=== PATIENT | male | born 1945 | race Caucasian/White ===

== ENCOUNTER 2018-03-06 15:20 | Inpatient (IN) | payer MEDICARE, OTHER ==
[~2018-03-06] VITALS: Ht 177.8 cm; Wt 79.5 kg
[~2018-03-06 15:20] MED LIST: NORCO10T PO; PANT40TA39 PO
[2018-03-06 15:47] LABS: BASOPHILS % (AUTO) 0.1 % (0-1); EOSINOPHILS % (AUTO) 0.2 % (0-6); HEMATOCRIT 40.8 % (42.0-52.0); HEMOGLOBIN 13.9 g/dl (14.0-17.9); LYMPHOCYTES # (AUTO) 1.4 X10'3 (1.1-4.8); LYMPHOCYTES % (AUTO) 8.4 % (21-51); MEAN CORPUSCULAR HEMOGLOBIN 30.9 PG (27.0-31.0); MEAN CORPUSCULAR HGB CONC 34.1 % (33.0-36.5); MEAN CORPUSCULAR VOLUME 90.7 FL (78-98); MEAN PLATELET VOLUME 7.9 FL (7.4-10.4); MONOCYTES # (AUTO) 0.3 X10'3 (0-0.9); NEUTROPHILS # (AUTO) 14.7 X10'3 (1.8-7.7); NEUTROPHILS % (AUTO) 89.3 % (42-75); PLATELET COUNT 238 X10'3 (140-440); RED CELL DISTRIBUTION WIDTH 13.8 % (11.5-14.5); WHITE BLOOD COUNT 16.4 X10'3 (4.5-11.0)
[2018-03-06 15:50] LABS: PARTIAL THROMBOPLASTIN TIME 30 SECONDS (22-32); PROTHROMBIN TIME 10.7 SECONDS (9.0-12.0)
[2018-03-06 15:56] LABS: ALANINE AMINOTRANSFERASE 36 U/L (12-78); ALBUMIN 3.8 G/DL (3.4-5.0); ALBUMIN/GLOBULIN RATIO 1.2 (1.1-1.5); ALKALINE PHOSPHATASE 86 IU/L (46-116); ANION GAP 8 (8-16); ASPARTATE AMINO TRANSFERASE 28 U/L (10-37); BLOOD UREA NITROGEN 22 MG/DL (7-18); BUN/CREATININE RATIO 16.5 (5.4-32.0); CALCIUM 8.7 MG/DL (8.5-10.1); CHLORIDE 99 MMOL/L (99-107); CREATININE 1.33 MG/DL (0.60-1.10); GLUCOSE 100 MG/DL (70-104); SODIUM 132 MMOL/L (135-145); TOTAL CARBON DIOXIDE 24.7 MMOL/L (24-32); TOTAL PROTEIN 7.1 G/DL (6.4-8.2); eGFR 53 ML/MIN
[2018-03-06 16:01] LABS: D-DIMER 0.72 MG/L FEU (0-0.50)
[2018-03-06] MEDS ORDERED: normal saline 1000ML IV soln IV ONE (16:15)
[2018-03-06] MEDS ORDERED: azithromycin/NS 500mg/250ml 250 ML IV ONE (16:15)
[2018-03-06] MEDS ORDERED: CefTRIAXone 2gm/D5W 50ml 50 ML IV ONE (16:15)
[2018-03-06] MEDS ORDERED: iohexol 350MG/ML 100ml bottle IV ONE (16:32)
[2018-03-06] MEDS ORDERED: UMEC1DIS INH (18:41)
[2018-03-06] MEDS ORDERED: ATOR40TA PO (18:41)
[2018-03-06] MEDS ORDERED: acetaminophen 325mg tablet PO PRN (19:15)
[2018-03-06] MEDS ORDERED: mag hydrox/Alum hydrox/simeth 30ml oral suspension PO PRN (19:15)
[2018-03-06] MEDS ORDERED: docusate sod 100mg capsule PO PRN (19:15)
[2018-03-06] MEDS ORDERED: magnesium 4gm in 100ml NS 100 ML IV PRN (19:15)
[2018-03-06] MEDS ORDERED: potassium Cl 20 mEq SR tablet PO PRN ×2 (19:15)
[2018-03-06] MEDS ORDERED: potassium Cl 40MEQ/NS 500ml 500 ML IV PRN ×2 (19:15)
[2018-03-06] MEDS ORDERED: ipratropium/albuterol 3ml nebule NEB PRN (19:15)
[2018-03-06] MEDS ORDERED: ondansetron/PF 4mg/2ml inj IV PRN (19:15)
[2018-03-06] MEDS ORDERED: magnesium 1gm/100ml D5W IVPB 100 ML IV PRN (19:15)
[2018-03-06 22:02] VITALS: BP 122/60
[2018-03-07] VITALS: BP 136/64
[2018-03-07 05:21] LABS: BASOPHILS % (AUTO) 0.2 % (0-1); EOSINOPHILS # (AUTO) 0.4 X10'3 (0-0.9); EOSINOPHILS % (AUTO) 2.6 % (0-6); HEMATOCRIT 35.5 % (42.0-52.0); HEMOGLOBIN 12.1 g/dl (14.0-17.9); LYMPHOCYTES # (AUTO) 1.9 X10'3 (1.1-4.8); LYMPHOCYTES % (AUTO) 13.5 % (21-51); MEAN CORPUSCULAR HEMOGLOBIN 30.9 PG (27.0-31.0); MEAN CORPUSCULAR HGB CONC 34.1 % (33.0-36.5); MEAN CORPUSCULAR VOLUME 90.6 FL (78-98); MEAN PLATELET VOLUME 8.6 FL (7.4-10.4); MONOCYTES % (AUTO) 6.6 % (2-12); NEUTROPHILS # (AUTO) 11.1 X10'3 (1.8-7.7); NEUTROPHILS % (AUTO) 77.1 % (42-75); PLATELET COUNT 208 X10'3 (140-440); RED BLOOD COUNT 3.92 X10'6 (4.70-6.10); WHITE BLOOD COUNT 14.4 X10'3 (4.5-11.0)
[2018-03-07 05:37] LABS: ALANINE AMINOTRANSFERASE 30 U/L (12-78); ALBUMIN 2.8 G/DL (3.4-5.0); ALBUMIN/GLOBULIN RATIO 0.9 (1.1-1.5); ALKALINE PHOSPHATASE 67 IU/L (46-116); ANION GAP 8 (8-16); ASPARTATE AMINO TRANSFERASE 20 U/L (10-37); BILIRUBIN,TOTAL 0.9 MG/DL (0.1-1.0); BLOOD UREA NITROGEN 20 MG/DL (7-18); BUN/CREATININE RATIO 15.7 (5.4-32.0); CALCIUM 8.4 MG/DL (8.5-10.1); CHLORIDE 102 MMOL/L (99-107); CHOL/HDL RATIO 1.7 (0.00-4.99); CHOLESTEROL 101 MG/DL (0-200); CREATININE 1.27 MG/DL (0.60-1.10); GLUCOSE 98 MG/DL (70-104); HDL CHOLESTEROL 59 MG/DL (35-60); LDL CHOLESTEROL 38 MG/DL (50-100); MAGNESIUM 1.8 MG/DL (1.5-2.4); POTASSIUM 4.1 MMOL/L (3.5-5.1); SODIUM 136 MMOL/L (135-145); TOTAL CARBON DIOXIDE 25.9 MMOL/L (24-32); TRIGLYCERIDES 47 MG/DL (20-135); eGFR 56 ML/MIN
[2018-03-07 07:12] VITALS: BP 137/66
[2018-03-07] MEDS ORDERED: atorvastatin 20mg tablet PO SCH (08:00)
[2018-03-07] MEDS ORDERED: enoxaparin 40mg/0.4ml syringe SQ SCH (08:00)
[2018-03-07] MEDS ORDERED: K and/or MAG REPLACEMENT MC SCH (08:00)
[2018-03-07] MEDS ORDERED: UMECLIDINIUM BRM IH SCH (08:00)
[2018-03-07] MEDS ORDERED: cefTRIAXone 1g/NS 100ml IVPB 100 ML IV SCH (08:00)
[2018-03-07] MEDS ORDERED: azithromycin/NS 500mg/250ml 250 ML IV SCH (08:00)
[2018-03-07] MEDS ORDERED: VILANTEROL TR IH SCH (08:00)
[2018-03-07] MEDS ORDERED: pneumococcal 23-VAL P-sac vacc 25 mcg/0.5ml vial IMVAC ONE (10:00)
[2018-03-07 11:00] VITALS: BP 129/64
[2018-03-07] MEDS ORDERED: LEVO750T21 PO (11:49)
[2018-03-07] MEDS ORDERED: ALBU8.5H8 INH (11:54)
[2018-03-07] MEDS ORDERED: PANT40TA4 PO (15:32)
[2018-03-07] MEDS ORDERED: FLUT1DIS4 INH (15:32)
[2018-03-07] MEDS ORDERED: lactobacillus rhamnosus 10,000 MMU CELLS/CAPSULE PO SCH (20:00)
== END 2018-03-07 16:34 | disposition home or self-care (01) | DRG 871 ==
LOC: ER 15:21 → ED HOLD 19:11 → SUR 3N 21:20
PROVIDERS: ADMIT Family Medicine; ATTEND Family Medicine
PROC: B32T1ZZ Computerized Tomography (CT Scan) of Left Pulmonary Artery using Low Osmolar Contrast (ICD-10-PCS; principal; 2018-03-06)
PROC: B3201ZZ Computerized Tomography (CT Scan) of Thoracic Aorta using Low Osmolar Contrast (ICD-10-PCS; 2018-03-06)
PROC: B32S1ZZ Computerized Tomography (CT Scan) of Right Pulmonary Artery using Low Osmolar Contrast (ICD-10-PCS; 2018-03-06)
DX: A41.9 Sepsis, unspecified organism (principal); J18.9 Pneumonia, unspecified organism; J44.0 Chronic obstructive pulmonary disease with (acute) lower respiratory infection; E78.00 Pure hypercholesterolemia, unspecified; F17.210 Nicotine dependence, cigarettes, uncomplicated; E78.5 Hyperlipidemia, unspecified; F14.10 Cocaine abuse, uncomplicated; F15.10 Other stimulant abuse, uncomplicated; Z87.11 Personal history of peptic ulcer disease; Z23 Encounter for immunization; Z79.899 Other long term (current) drug therapy; Z71.51 Drug abuse counseling and surveillance of drug abuser
CPT/HCPCS: 36415; 71045; 71275; 80053; 80061; 83605; 83735; 84145; 84484; 85025; 85379; 85610; 85730; 87040; 87070; 90732; 93005; 94760; 96365; 96366; 96368; 99285; J0456; J0696; J1650; J7030; Q9967

== ENCOUNTER 2018-10-28 16:19 | Emergency (ER) | payer MEDICARE, OTHER ==
[~2018-10-28] VITALS: Ht 177.8 cm; Wt 76.0 kg
[~2018-10-28 16:19] MED LIST changes: +ALBU8.5H8 INH; +ATOR40TA PO; +FLUT1DIS4 INH; -NORCO10T PO; -PANT40TA39 PO; +PANT40TA4 PO; +UMEC1DIS INH
[2018-10-28 17:31] LABS: BASOPHILS # (AUTO) 0.1 X10'3 (0-0.2); BASOPHILS % (AUTO) 1.2 % (0-1); EOSINOPHILS # (AUTO) 0.3 X10'3 (0-0.9); EOSINOPHILS % (AUTO) 3.4 % (0-6); HEMATOCRIT 39.8 % (42.0-52.0); HEMOGLOBIN 13.5 g/dl (14.0-17.9); LYMPHOCYTES # (AUTO) 2.2 X10'3 (1.1-4.8); LYMPHOCYTES % (AUTO) 29.2 % (21-51); MEAN CORPUSCULAR HEMOGLOBIN 30.4 PG (27.0-31.0); MEAN CORPUSCULAR VOLUME 89.6 FL (78-98); MEAN PLATELET VOLUME 8.6 FL (7.4-10.4); MONOCYTES # (AUTO) 0.9 X10'3 (0-0.9); MONOCYTES % (AUTO) 11.9 % (2-12); NEUTROPHILS # (AUTO) 4.1 X10'3 (1.8-7.7); NEUTROPHILS % (AUTO) 54.3 % (42-75); PLATELET COUNT 255 X10'3 (140-440); RED BLOOD COUNT 4.43 X10'6 (4.70-6.10); RED CELL DISTRIBUTION WIDTH 13.4 % (11.5-14.5); WHITE BLOOD COUNT 7.5 X10'3 (4.5-11.0)
[2018-10-28 17:35] LABS: INR 1.1 INR
[2018-10-28 17:41] LABS: ALANINE AMINOTRANSFERASE 26 U/L (12-78); ALBUMIN 3.6 G/DL (3.4-5.0); ALKALINE PHOSPHATASE 86 IU/L (46-116); ANION GAP 7 (8-16); ASPARTATE AMINO TRANSFERASE 23 U/L (10-37); BILIRUBIN,TOTAL 0.2 MG/DL (0.1-1.0); BLOOD UREA NITROGEN 24 MG/DL (7-18); BUN/CREATININE RATIO 20.7 (5.4-32.0); CALCIUM 9.4 MG/DL (8.5-10.1); CHLORIDE 105 MMOL/L (99-107); CREATININE 1.16 MG/DL (0.60-1.10); GLUCOSE 98 MG/DL (70-104); SODIUM 138 MMOL/L (135-145); TOTAL PROTEIN 7.1 G/DL (6.4-8.2); eGFR 62 ML/MIN
[2018-10-28 17:51] LABS: CLARITY,URINE CLEAR (Clear); COLOR,URINE YELLOW (Yellow); GLUCOSE, URINE NEGATIVE (Neg); KETONES,URINE NEGATIVE (Neg); LEUKOCYTE ESTERASE ,URINE NEGATIVE (Neg); NITRITES, URINE NEGATIVE (Neg); OCCULT BLOOD,URINE TRACE-INTACT (Neg); PH,URINE 5.5 (4.8-8.0); PROTEIN,URINE TRACE mg/dl (Neg); UROBILINOGEN,URINE 0.2 E.U/dL (0.2-1.0)
[2018-10-28 17:52] LABS: UA COLLECTION TYPE CLN CATCH MIDSTREAM
[2018-10-28 17:57] LABS: BACTERIA,URINE NONE SEEN /HPF (Neg); MUCUS STRANDS FEW /LPF (Neg); RBC,URINE 0-2 /HPF (0-2); SPERM MANY /HPF (NEGATIVE); SQUAMOUS EPITHELIAL CELL,UR FEW /LPF (FEW); WBC,URINE NONE SEEN /HPF (0-4)
[2018-10-28] MEDS ORDERED: acetaminophen 325mg tablet PO ONE (20:10)
[2018-10-28] MEDS ORDERED: BISA-155 PO (21:37)
[2018-10-28] MEDS ORDERED: POLY17PO10 PO (21:37)
[2018-10-28 21:44] VITALS: BP 180/90
== END 2018-10-28 21:46 | disposition home or self-care (01) ==
LOC: ER 16:20
DX: K59.00 Constipation, unspecified (principal); R10.12 Left upper quadrant pain; E78.00 Pure hypercholesterolemia, unspecified; J44.9 Chronic obstructive pulmonary disease, unspecified
CPT/HCPCS: 36415; 74176; 80053; 81001; 85025; 85610; 99284

== ENCOUNTER 2019-02-27 14:10 | Day surgery (SDC) | payer MEDICARE, OTHER ==
[2019-02-27] VITALS (9 sets, daily range): BP systolic 113–144; BP diastolic 53–82
[~2019-02-27] VITALS: Ht 177.8 cm; Wt 75.7 kg
[~2019-02-27 14:10] MED LIST changes: +BISA-155 PO
[2019-02-27] MEDS ORDERED: diphenhydrAMINE 25mg capsule PO PRN (14:30)
[2019-02-27] MEDS ORDERED: LORazepam 0.5 MG tablet PO PRN (14:30)
[2019-02-27] MEDS ORDERED: ASPI81TA52 PO (14:45)
[2019-02-27] MEDS ORDERED: BUDE10.22 INH (14:45)
[2019-02-27] MEDS ORDERED: LEVO750T21 PO (14:45)
[2019-02-27] MEDS ORDERED: CHOL50004 PO (14:45)
[2019-02-27] MEDS ORDERED: LISI-600 PO (14:45)
[2019-02-27] MEDS ORDERED: CLOP75TA15 PO (14:45)
[2019-02-27] MEDS ORDERED: AMLO10TA PO (14:45)
[2019-02-27] MEDS: normal saline 1,000 ML IV SCH ×2 (15:03→18:20)
[2019-02-27] MEDS ORDERED: iohexol 350MG/ML 100ml bottle IV ONE ×2 (15:38→17:48)
[2019-02-27] MEDS ORDERED: DOPamine 400mg/D5W 250ml 250 ML IV ONE (15:38)
[2019-02-27] MEDS ORDERED: iohexol 350 MG/ML 50ML vial IV ONE ×2 (15:38→17:16)
[2019-02-27] MEDS ORDERED: phenylephrine 10mg/ml inj. ONE (15:38)
[2019-02-27] MEDS ORDERED: LIDOcaine 1% (10mg/ml)w/preservative injection 20ml MDV ONE (15:38)
[2019-02-27] MEDS ORDERED: atropine 0.1mg/ml 10ml syringe ONE (15:38)
[2019-02-27] MEDS ORDERED: heparin 1,000unit/ml 10ml vial 10 ML ONE (17:37)
--- NOTE | 2019-02-27 18:05 | NUR ---
Received report from RAMAN Pineda from the laboratory worker. Patient is said to be alert and oriented. He has received no sedation. He was to have had a carotid stent placed but did not receive any intervention as the doctor was not able to cross over the legion. Patient will need to follow up with Dr. Ojeda and be referred for a surgical consult. Per RAMAN Pineda patient received 8000 units of heparin as well. Will await patient's arrival to the unit.
--- NOTE | 2019-02-27 18:10 | NUR ---
Patient arrive to the ACCE unit by way of gurtoby. Patient is alert and oriented x4. Vitals taken and Right groin checked as this is entrance for heart cath. Assessment completed and assumed care of patient. Will continue to monitor patient for duration of shift. Addendum: 02/27/19 at 1946 by Kathe Flores RN Patient has orders to be discharged at 2100 hrs this shift 02/27/2019 per RAMAN Pineda from the laboratory animal caretaker.
[2019-02-27] MEDS ORDERED: ondansetron/PF 4mg/2ml inj IV PRN (18:45)
[2019-02-27] MEDS ORDERED: HYDROcodone/acetaminophen 5mg/325mg tablet PO PRN (18:45)
[2019-02-27] MEDS ORDERED: OXAZEpam 15mg capsule PO PRN (18:45)
[2019-02-27] MEDS ORDERED: proCHLORperazine 10 MG/2 ml inj IV PRN (18:45)
[2019-02-27] MEDS ORDERED: HYDROcodone/acetaminophen 10/325mg tab PO PRN (18:45)
--- NOTE | 2019-02-27 21:35 | NUR ---
Went over discharge papers with patient and his girlfriend. Patient reports that he understands and signed the discharge paperwork. Patient was alert and oriented x4 and in stable condition. Right groin assessed just prior to discharge and was in stable condition. No hematoma, soft to the touch and only a small amount of drainage. The patient had no complaints of pain. The patient and his girlfriend then mentioned that they needed to wait for their ride. Allowed patient to remain in the room until ride came.
--- NOTE | 2019-02-27 22:30 | NUR ---
Patient's ride arrived at the hospital and I took patient down to his ride awaiting in our parking lot. I pushed patient down in a wheelchair. He maintained a stable condition while waiting for his ride. He took all of his belongings with him and left nothing in the room.
== END 2019-02-27 21:35 | disposition home or self-care (01) ==
LOC: SSTAY O 14:10 → MED 3N 18:58 → SSTAY O 21:35
PROVIDERS: ATTEND Internal Medicine Interventional Cardiology
DX: I65.23 Occlusion and stenosis of bilateral carotid arteries (principal); I10 Essential (primary) hypertension; J44.9 Chronic obstructive pulmonary disease, unspecified; Z79.01 Long term (current) use of anticoagulants; Z79.899 Other long term (current) drug therapy; Z79.82 Long term (current) use of aspirin
CPT/HCPCS: 36222; 93005; C1769; J0461; J1265; J1644; J2001; J2370; J7030; Q0163; Q9967; A4620; A6258; C1725; C1760; C1876; C1884; G0378

== ENCOUNTER 2019-03-01 21:03 | Inpatient (IN) | payer MEDICARE, OTHER ==
[~2019-03-01] VITALS: Ht 172.7 cm; Wt 80.7 kg
[2019-03-01] MEDS: normal saline 1000ml 1,000 ML IV SCH (08:48)
[~2019-03-01 21:03] MED LIST changes: -ALBU8.5H8 INH; +AMLO10TA PO; +ASPI81TA52 PO; -BISA-155 PO; +BUDE10.22 INH; +CHOL50004 PO; +CLOP75TA15 PO; -FLUT1DIS4 INH; +LEVO750T21 PO; +LISI-600 PO; -PANT40TA4 PO; -UMEC1DIS INH
[2019-03-01] MEDS ORDERED: normal saline 1000ml 1,000 ML IV ONE (21:35)
[2019-03-01] MEDS ORDERED: LEVO50TA8 PO (21:41)
[2019-03-01 21:43] LABS: BASOPHILS # (AUTO) 0.1 X10'3 (0-0.2); BASOPHILS % (AUTO) 1.2 % (0-1); EOSINOPHILS # (AUTO) 0.3 X10'3 (0-0.9); EOSINOPHILS % (AUTO) 3.5 % (0-6); HEMATOCRIT 35.2 % (42.0-52.0); LYMPHOCYTES # (AUTO) 2.6 X10'3 (1.1-4.8); MEAN CORPUSCULAR HEMOGLOBIN 30.9 PG (27.0-31.0); MEAN CORPUSCULAR VOLUME 90.9 FL (78-98); MEAN PLATELET VOLUME 8.3 FL (7.4-10.4); MONOCYTES # (AUTO) 1.2 X10'3 (0-0.9); MONOCYTES % (AUTO) 14.3 % (2-12); NEUTROPHILS # (AUTO) 4.4 X10'3 (1.8-7.7); PLATELET COUNT 184 X10'3 (140-440); RED BLOOD COUNT 3.87 X10'6 (4.70-6.10); RED CELL DISTRIBUTION WIDTH 13.9 % (11.5-14.5); WHITE BLOOD COUNT 8.5 X10'3 (4.5-11.0)
[2019-03-01 21:57] LABS: PARTIAL THROMBOPLASTIN TIME 33 SECONDS (22-32)
[2019-03-01 21:59] LABS: ALANINE AMINOTRANSFERASE 28 U/L (12-78); ALBUMIN 3.8 G/DL (3.4-5.0); ALBUMIN/GLOBULIN RATIO 1.1 (1.1-1.5); ALKALINE PHOSPHATASE 85 IU/L (46-116); ANION GAP 11 (8-16); ASPARTATE AMINO TRANSFERASE 16 U/L (10-37); BILIRUBIN,TOTAL 0.4 MG/DL (0.1-1.0); BLOOD UREA NITROGEN 41 MG/DL (7-18); BUN/CREATININE RATIO 17.4 (5.4-32.0); CALCIUM 8.5 MG/DL (8.5-10.1); CHLORIDE 103 MMOL/L (99-107); CREATININE 2.35 MG/DL (0.60-1.10); GLUCOSE 96 MG/DL (70-104); POTASSIUM 4.4 MMOL/L (3.5-5.1); SODIUM 137 MMOL/L (135-145); TOTAL PROTEIN 7.2 G/DL (6.4-8.2); eGFR 27 ML/MIN
[2019-03-01] MEDS ORDERED: mag hydrox/Alum hydrox/simeth 30ml oral suspension PO PRN (22:50)
[2019-03-01] MEDS ORDERED: morphine 2 MG/ML inj. syringe IV PRN ×2 (22:50)
[2019-03-01] MEDS ORDERED: ondansetron/PF 4mg/2ml inj IV PRN (22:50)
[2019-03-01] MEDS ORDERED: acetaminophen 325mg tablet PO PRN (22:50)
[2019-03-01] MEDS ORDERED: magnesium hydroxide 30ml (MOM) UD suspension PO PRN (22:50)
--- NOTE | 2019-03-01 22:51 | NUR ---
Mekhi bernabe in [facility] - 03/01/19 at 2253 by KRIS Pt given Octreotide, TXA, and pantoprazol at [facility]
[2019-03-02] VITALS (9 sets, daily range): BP systolic 102–131; BP diastolic 35–73
[2019-03-02] MEDS: albuterol 2.5 MG/3 ML nebule NEB SCH ×4 (03:03→20:42)
[2019-03-02 04:40] LABS: BASOPHILS # (AUTO) 0.1 X10'3 (0-0.2); EOSINOPHILS # (AUTO) 0.3 X10'3 (0-0.9); EOSINOPHILS % (AUTO) 3.7 % (0-6); HEMATOCRIT 34.3 % (42.0-52.0); HEMOGLOBIN 11.7 g/dl (14.0-17.9); LYMPHOCYTES # (AUTO) 2.1 X10'3 (1.1-4.8); LYMPHOCYTES % (AUTO) 30.1 % (21-51); MEAN CORPUSCULAR HEMOGLOBIN 30.9 PG (27.0-31.0); MEAN CORPUSCULAR HGB CONC 34.1 g/dL (33.0-36.5); MEAN CORPUSCULAR VOLUME 90.6 FL (78-98); MEAN PLATELET VOLUME 8.6 FL (7.4-10.4); MONOCYTES % (AUTO) 14.6 % (2-12); NEUTROPHILS # (AUTO) 3.6 X10'3 (1.8-7.7); NEUTROPHILS % (AUTO) 50.6 % (42-75); PLATELET COUNT 158 X10'3 (140-440); RED BLOOD COUNT 3.79 X10'6 (4.70-6.10); RED CELL DISTRIBUTION WIDTH 13.9 % (11.5-14.5); WHITE BLOOD COUNT 7.1 X10'3 (4.5-11.0)
[2019-03-02 04:53] LABS: ALBUMIN 3.3 G/DL (3.4-5.0); ANION GAP 9 (8-16); BLOOD UREA NITROGEN 37 MG/DL (7-18); BUN/CREATININE RATIO 20.6 (5.4-32.0); CALCIUM 8.5 MG/DL (8.5-10.1); CHLORIDE 109 MMOL/L (99-107); GLUCOSE 100 MG/DL (70-104); POTASSIUM 4.5 MMOL/L (3.5-5.1); SODIUM 140 MMOL/L (135-145); TOTAL CARBON DIOXIDE 22.2 MMOL/L (24-32); eGFR 37 ML/MIN
--- NOTE | 2019-03-02 06:05 | NUR ---
Patient in room ORTHO 4015. I have received report from Helder CAMARGO, and had the opportunity to ask questions and assume patient care.
[2019-03-02] MEDS: budesonide 0.5mg/2ml UD nebule IH SCH ×2 (07:31→20:42)
[2019-03-02] MEDS: levoTHYROXINE 25mcg tablet PO SCH (08:00)
[2019-03-02] MEDS: aspirin 81mg tablet.DR PO SCH (08:00)
[2019-03-02] MEDS: amLODIPine 5mg tablet PO SCH (08:04)
[2019-03-02] MEDS: clopidogrel 75mg tablet PO SCH (08:05)
[2019-03-02] MEDS: lisinopril 20mg tablet PO SCH (08:05)
[2019-03-02] MEDS: normal saline 1000ml 1,000 ML IV SCH ×3 (08:48→18:49)
--- NOTE | 2019-03-02 11:27 | NUR ---
PAGER ID: [phone] MESSAGE: Delores Ruiz, for 4015B, Mr. Jay, orthostatic vitals are documented, thank you Kady
--- NOTE | 2019-03-02 17:05 | NUR ---
Patient in room ORTHO 4015. I have received report from Toby CAMARGO in ED and had the opportunity to ask questions and assume patient care.
--- NOTE | 2019-03-02 18:30 | NUR ---
Patient in room ORTHO 4015. I have received report from Kady CAMARGO and had the opportunity to ask questions and assume patient care.
--- NOTE | 2019-03-02 18:40 | NUR ---
Problems reprioritized. Patient report given, questions answered & plan of care reviewed with Candy CAMARGO from [facility].
--- NOTE | 2019-03-02 18:40 | NUR ---
ag equipment field service technician called me to alert me to a positive MRI of the brain for multiple acute and subacute strokes. I relayed this information to Dr. Ruiz and he ordered patient to start Lipitor and have a tele neuro exam set up to give him recommendations on how to treat the patient for the stroke. I notified the Stroke team nurse, Ximena CAMARGO and she will check the patient tomorrow. I will call the [facility] to set up a consult.
[2019-03-02] MEDS: atorvastatin 20mg tablet PO SCH (20:21)
--- NOTE | 2019-03-02 20:42 | NUR ---
Per patient he has chronic numbness/ no feeling to his left leg from the knee down to foot Addendum: 03/02/19 at 2047 by Merlene Duong RN Amended: Links added.
[2019-03-02 21:31] LABS: URINE AMPHETAMINE SCREEN NEGATIVE (Neg); URINE BARBITUATE SCREEN NEGATIVE (Neg); URINE BENZODIAZEPINES SCREEN NEGATIVE (Neg); URINE CANNABINOID SCREEN NEGATIVE (Neg); URINE COCAINE SCREEN NEGATIVE (Neg); URINE METHADONE SCREEN NEGATIVE (Neg); URINE OPIATE SCREEN NEGATIVE (Neg); URINE PHENCYCLIDINE SCREEN NEGATIVE (Neg)
--- NOTE | 2019-03-02 23:10 | NUR ---
I called [facility] and faxed all the required paperwork for the neuro evaluation to be done. They will call when they have a MD to do the neuro evaluation.
[2019-03-03] VITALS (8 sets, daily range): BP systolic 102–137; BP diastolic 45–93
--- NOTE | 2019-03-03 00:29 | NUR ---
[facility] called back and they are scheduling patient for neuro consult by MD between 08-11 am Tuesday, Cart is outside door of room 4015. Will inform day shift of information.
[2019-03-03] MEDS: albuterol 2.5 MG/3 ML nebule NEB SCH ×4 (02:53→19:47)
--- NOTE | 2019-03-03 05:25 | NUR ---
Neuro Telemetry eval done with neurologist.
--- NOTE | 2019-03-03 06:05 | NUR ---
The neurologist from [facility] tele [facility] recommends: changing the Lipitor to 80mg a day, getting vascular consult, possible Holter monitor on d/c if no afib or irregular heart rhythm at our hospital is found. Also the Holter monitor recommendation if esr is negative and no vasculitis is found. Also recommends labs: Maureen, tsh,hiv,esr or crp, rpr,a1c, homocystine, b12, ua with c/s if indicated. She also recommended to continue the asa and Plavix and no other anticoagulant at this time unless we find the source of emboli. Also manager clinical services to help him with resources for stopping the drug abuse. Have Dr. Ruiz read the printed report from the neurologist that will be faxed to the floor so he can see the recommendations.
--- NOTE | 2019-03-03 06:20 | NUR ---
Patient in room ORTHO 4015. I have received report from Candy CAMARGO and had the opportunity to ask questions and assume patient care.
--- NOTE | 2019-03-03 06:22 | NUR ---
Problems reprioritized. Patient report given, questions answered & plan of care reviewed with Rupali CAMARGO.
[2019-03-03 07:26] LABS: BASOPHILS # (AUTO) 0.1 X10'3 (0-0.2); EOSINOPHILS # (AUTO) 0.2 X10'3 (0-0.9); EOSINOPHILS % (AUTO) 2.7 % (0-6); HEMATOCRIT 33.6 % (42.0-52.0); HEMOGLOBIN 11.4 g/dl (14.0-17.9); LYMPHOCYTES # (AUTO) 1.6 X10'3 (1.1-4.8); LYMPHOCYTES % (AUTO) 21.8 % (21-51); MEAN CORPUSCULAR HEMOGLOBIN 31.4 PG (27.0-31.0); MEAN CORPUSCULAR VOLUME 92.3 FL (78-98); MEAN PLATELET VOLUME 8.9 FL (7.4-10.4); MONOCYTES # (AUTO) 0.9 X10'3 (0-0.9); MONOCYTES % (AUTO) 12.8 % (2-12); NEUTROPHILS # (AUTO) 4.5 X10'3 (1.8-7.7); NEUTROPHILS % (AUTO) 61.7 % (42-75); PLATELET COUNT 172 X10'3 (140-440); RED BLOOD COUNT 3.64 X10'6 (4.70-6.10); WHITE BLOOD COUNT 7.3 X10'3 (4.5-11.0)
[2019-03-03 07:48] LABS: ALBUMIN 3.2 G/DL (3.4-5.0); ANION GAP 10 (8-16); BLOOD UREA NITROGEN 27 MG/DL (7-18); BUN/CREATININE RATIO 19.1 (5.4-32.0); CALCIUM 8.7 MG/DL (8.5-10.1); CHLORIDE 109 MMOL/L (99-107); CHOL/HDL RATIO 3.8 (0.00-4.99); CHOLESTEROL 151 MG/DL (0-200); CREATININE 1.41 MG/DL (0.60-1.10); GLUCOSE 99 MG/DL (70-104); HDL CHOLESTEROL 40 MG/DL (35-60); LDL CHOLESTEROL 95 MG/DL (50-100); POTASSIUM 4.6 MMOL/L (3.5-5.1); SODIUM 141 MMOL/L (135-145); TOTAL CARBON DIOXIDE 21.7 MMOL/L (24-32); TRIGLYCERIDES 105 MG/DL (20-135); eGFR 50 ML/MIN
[2019-03-03] MEDS: budesonide 0.5mg/2ml UD nebule IH SCH ×2 (08:26→19:47)
[2019-03-03] MEDS: atorvastatin 20mg tablet PO SCH (09:12)
[2019-03-03] MEDS: clopidogrel 75mg tablet PO SCH (09:12)
[2019-03-03] MEDS: lisinopril 20mg tablet PO SCH (09:12)
[2019-03-03] MEDS: levoTHYROXINE 25mcg tablet PO SCH (09:12)
[2019-03-03] MEDS: aspirin 81mg tablet.DR PO SCH (09:12)
[2019-03-03] MEDS: amLODIPine 5mg tablet PO SCH (09:12)
[2019-03-03] MEDS: normal saline 1000ml 1,000 ML IV SCH ×2 (09:13→20:16)
--- NOTE | 2019-03-03 18:00 | NUR ---
Problems reprioritized. Patient report given, questions answered & plan of care reviewed with Yan pratt.
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
[2019-03-04] VITALS (7 sets, daily range): BP systolic 104–131; BP diastolic 26–67
[2019-03-04] MEDS: albuterol 2.5 MG/3 ML nebule NEB SCH ×4 (02:04→20:32)
[2019-03-04 05:53] LABS: BASOPHILS # (AUTO) 0.1 X10'3 (0-0.2); BASOPHILS % (AUTO) 0.9 % (0-1); EOSINOPHILS # (AUTO) 0.3 X10'3 (0-0.9); EOSINOPHILS % (AUTO) 4.6 % (0-6); HEMATOCRIT 33.2 % (42.0-52.0); HEMOGLOBIN 11.4 g/dl (14.0-17.9); LYMPHOCYTES # (AUTO) 1.6 X10'3 (1.1-4.8); LYMPHOCYTES % (AUTO) 24.2 % (21-51); MEAN CORPUSCULAR HEMOGLOBIN 31.5 PG (27.0-31.0); MEAN CORPUSCULAR HGB CONC 34.4 g/dL (33.0-36.5); MEAN CORPUSCULAR VOLUME 91.7 FL (78-98); MEAN PLATELET VOLUME 8.6 FL (7.4-10.4); MONOCYTES # (AUTO) 0.8 X10'3 (0-0.9); MONOCYTES % (AUTO) 12.1 % (2-12); NEUTROPHILS # (AUTO) 3.9 X10'3 (1.8-7.7); NEUTROPHILS % (AUTO) 58.2 % (42-75); PLATELET COUNT 186 X10'3 (140-440); RED BLOOD COUNT 3.62 X10'6 (4.70-6.10); RED CELL DISTRIBUTION WIDTH 14.1 % (11.5-14.5); WHITE BLOOD COUNT 6.6 X10'3 (4.5-11.0)
[2019-03-04 06:15] LABS: ALBUMIN 3.2 G/DL (3.4-5.0); ANION GAP 9 (8-16); BLOOD UREA NITROGEN 18 MG/DL (7-18); BUN/CREATININE RATIO 15.5 (5.4-32.0); CALCIUM 8.6 MG/DL (8.5-10.1); CHLORIDE 110 MMOL/L (99-107); CREATININE 1.16 MG/DL (0.60-1.10); GLUCOSE 93 MG/DL (70-104); POTASSIUM 4.5 MMOL/L (3.5-5.1); SODIUM 143 MMOL/L (135-145); TOTAL CARBON DIOXIDE 24.4 MMOL/L (24-32); eGFR 62 ML/MIN
--- NOTE | 2019-03-04 06:38 | NUR ---
Received report from Helder CAMARGO
[2019-03-04] MEDS: aspirin 81mg tablet.DR PO SCH (08:01)
[2019-03-04] MEDS: levoTHYROXINE 25mcg tablet PO SCH (08:01)
[2019-03-04] MEDS: atorvastatin 20mg tablet PO SCH (08:01)
[2019-03-04] MEDS: clopidogrel 75mg tablet PO SCH (08:01)
[2019-03-04] MEDS: lisinopril 20mg tablet PO SCH (08:01)
[2019-03-04] MEDS: amLODIPine 5mg tablet PO SCH (08:02)
[2019-03-04] MEDS: budesonide 0.5mg/2ml UD nebule IH SCH ×2 (10:10→20:32)
[2019-03-04] MEDS: normal saline 1000ml 1,000 ML IV SCH (10:48)
--- NOTE | 2019-03-04 12:33 | NUR ---
Patient was discharged iv and tele was removed from patient. Patient was alert and oriented at time of discharge. Patient calvin prescrption was given to him with his signed papers in the folder. patient left with sister Addendum: 03/04/19 at 1240 by Chela Langston RN Written on wrong patient
[2019-03-04] MEDS ORDERED: nitroGLYCERIN 0.4mg SUBLingual tab SL PRN (14:40)
[2019-03-04] MEDS ORDERED: aminophylline 250mg/10ml inj. IV PRN (14:40)
[2019-03-04] MEDS ORDERED: metoprolol tartrate 1mg/ml inj IV PRN (14:40)
[2019-03-04] MEDS ORDERED: regadenoson 0.4mg/5ml syringe IV PRN (14:40)
--- NOTE | 2019-03-04 18:00 | NUR ---
Received report from Chela CAMARGO, assumed care of patient with Shannon CAMARGO
[2019-03-05] VITALS (12 sets, daily range): BP systolic 104–149; BP diastolic 54–73
[2019-03-05] MEDS: albuterol 2.5 MG/3 ML nebule NEB SCH ×4 (02:48→20:19)
[2019-03-05] MEDS: normal saline 1000ml 1,000 ML IV SCH ×3 (02:59→19:12)
--- NOTE | 2019-03-05 06:25 | NUR ---
Gave report to Chela CAMARGO with Shannon CAMARGO.
[2019-03-05 06:44] LABS: BASOPHILS # (AUTO) 0.1 X10'3 (0-0.2); BASOPHILS % (AUTO) 1.3 % (0-1); EOSINOPHILS # (AUTO) 0.3 X10'3 (0-0.9); HEMOGLOBIN 11.5 g/dl (14.0-17.9); LYMPHOCYTES # (AUTO) 1.6 X10'3 (1.1-4.8); LYMPHOCYTES % (AUTO) 24.8 % (21-51); MEAN CORPUSCULAR HGB CONC 33.7 g/dL (33.0-36.5); MEAN PLATELET VOLUME 8.6 FL (7.4-10.4); MONOCYTES # (AUTO) 0.8 X10'3 (0-0.9); MONOCYTES % (AUTO) 11.7 % (2-12); NEUTROPHILS # (AUTO) 3.7 X10'3 (1.8-7.7); NEUTROPHILS % (AUTO) 57.2 % (42-75); PLATELET COUNT 206 X10'3 (140-440); RED CELL DISTRIBUTION WIDTH 14.3 % (11.5-14.5); WHITE BLOOD COUNT 6.5 X10'3 (4.5-11.0)
[2019-03-05 06:54] LABS: ALBUMIN 3.2 G/DL (3.4-5.0); ANION GAP 12 (8-16); BLOOD UREA NITROGEN 16 MG/DL (7-18); BUN/CREATININE RATIO 14.3 (5.4-32.0); CALCIUM 8.6 MG/DL (8.5-10.1); CHLORIDE 109 MMOL/L (99-107); CREATININE 1.12 MG/DL (0.60-1.10); GLUCOSE 94 MG/DL (70-104); POTASSIUM 4.5 MMOL/L (3.5-5.1); SODIUM 146 MMOL/L (135-145); TOTAL CARBON DIOXIDE 24.6 MMOL/L (24-32); eGFR 65 ML/MIN
[2019-03-05] MEDS: budesonide 0.5mg/2ml UD nebule IH SCH ×2 (06:54→20:19)
[2019-03-05] MEDS: levoTHYROXINE 25mcg tablet PO SCH (07:00)
[2019-03-05] MEDS: lisinopril 20mg tablet PO SCH (07:15)
[2019-03-05] MEDS: amLODIPine 5mg tablet PO SCH (07:16)
[2019-03-05] MEDS: atorvastatin 20mg tablet PO SCH (07:17)
[2019-03-05] MEDS: clopidogrel 75mg tablet PO SCH ×2 (07:17→11:17)
[2019-03-05] MEDS: aspirin 81mg tablet.DR PO SCH (07:17)
--- NOTE | 2019-03-05 18:25 | NUR ---
Patient in room ORTHO 4015. I have received report from RAMAN York and had the opportunity to ask questions and assume patient care. The patient is resting comfortably at this time, just finished dinner. He is A&O x3 and CALERO, I will continue to monitor.
[2019-03-06] MEDS: normal saline 1000ml 1,000 ML IV SCH ×3 (02:48→20:29)
[2019-03-06] MEDS: albuterol 2.5 MG/3 ML nebule NEB SCH ×4 (02:48→20:04)
[2019-03-06 06:08] LABS: BASOPHILS # (AUTO) 0.1 X10'3 (0-0.2); BASOPHILS % (AUTO) 1.4 % (0-1); EOSINOPHILS # (AUTO) 0.3 X10'3 (0-0.9); HEMATOCRIT 33.4 % (42.0-52.0); HEMOGLOBIN 11.6 g/dl (14.0-17.9); LYMPHOCYTES # (AUTO) 1.7 X10'3 (1.1-4.8); LYMPHOCYTES % (AUTO) 26.8 % (21-51); MEAN CORPUSCULAR HEMOGLOBIN 31.5 PG (27.0-31.0); MEAN CORPUSCULAR HGB CONC 34.7 g/dL (33.0-36.5); MEAN CORPUSCULAR VOLUME 90.9 FL (78-98); MEAN PLATELET VOLUME 8.1 FL (7.4-10.4); MONOCYTES # (AUTO) 0.8 X10'3 (0-0.9); NEUTROPHILS # (AUTO) 3.5 X10'3 (1.8-7.7); NEUTROPHILS % (AUTO) 54.8 % (42-75); PLATELET COUNT 218 X10'3 (140-440); RED BLOOD COUNT 3.67 X10'6 (4.70-6.10); RED CELL DISTRIBUTION WIDTH 13.9 % (11.5-14.5); WHITE BLOOD COUNT 6.5 X10'3 (4.5-11.0)
[2019-03-06 06:16] LABS: ALBUMIN 3.1 G/DL (3.4-5.0); ANION GAP 8 (8-16); BLOOD UREA NITROGEN 16 MG/DL (7-18); BUN/CREATININE RATIO 13.3 (5.4-32.0); CALCIUM 8.5 MG/DL (8.5-10.1); CHLORIDE 110 MMOL/L (99-107); GLUCOSE 92 MG/DL (70-104); POTASSIUM 4.6 MMOL/L (3.5-5.1); SODIUM 143 MMOL/L (135-145); TOTAL CARBON DIOXIDE 25.4 MMOL/L (24-32); eGFR 60 ML/MIN
--- NOTE | 2019-03-06 06:30 | NUR ---
Problems reprioritized. Patient report given, questions answered & plan of care reviewed with RAMAN York.
--- NOTE | 2019-03-06 06:31 | NUR ---
Received report from Enriqueta CAMARGO
[2019-03-06] MEDS: levoTHYROXINE 25mcg tablet PO SCH (07:17)
[2019-03-06] MEDS: aspirin 81mg tablet.DR PO SCH (07:18)
[2019-03-06] MEDS: amLODIPine 5mg tablet PO SCH (07:18)
[2019-03-06] MEDS: atorvastatin 20mg tablet PO SCH (07:18)
[2019-03-06] MEDS: clopidogrel 75mg tablet PO SCH (07:18)
[2019-03-06] MEDS: lisinopril 20mg tablet PO SCH (07:18)
[2019-03-06 08:00] VITALS: BP_SYST 104; BP_SYST 113; BP_SYST 125; BP_DIAS 42; BP_DIAS 53; BP_DIAS 54
[2019-03-06 08:07] VITALS: BP 119/53
[2019-03-06] MEDS: budesonide 0.5mg/2ml UD nebule IH SCH ×2 (08:09→20:04)
[2019-03-06 10:00] VITALS: BP 150/66
[2019-03-06 18:00] VITALS: BP 121/71
--- NOTE | 2019-03-06 18:15 | NUR ---
Patient in room ORTHO 4015. I have received report from RAMAN York and had the opportunity to ask questions and assume patient care. Patient is A&O x3, CALERO and is resting comfortably on hospital bed, just finished dinner. I will continue to monitor, surgery is scheduled with Dr. Junior tomorrow @7am.
[2019-03-06 22:00] VITALS: BP 134/55
[2019-03-06 23:36] VITALS: BP 143/67
[2019-03-07] VITALS (26 sets, daily range): BP systolic 105–158; BP diastolic 49–85
[2019-03-07] MEDS: albuterol 2.5 MG/3 ML nebule NEB SCH ×4 (02:31→20:39)
--- NOTE | 2019-03-07 06:05 | NUR ---
Patient in room ORTHO 4015. I have received report from Enriqueta Sandoval RN and had the opportunity to ask questions and assume patient care.
[2019-03-07 06:12] LABS: BASOPHILS # (AUTO) 0.1 X10'3 (0-0.2); BASOPHILS % (AUTO) 0.7 % (0-1); EOSINOPHILS # (AUTO) 0.4 X10'3 (0-0.9); EOSINOPHILS % (AUTO) 5.2 % (0-6); HEMATOCRIT 35.7 % (42.0-52.0); HEMOGLOBIN 12.4 g/dl (14.0-17.9); LYMPHOCYTES # (AUTO) 1.9 X10'3 (1.1-4.8); LYMPHOCYTES % (AUTO) 24.2 % (21-51); MEAN CORPUSCULAR HEMOGLOBIN 31.6 PG (27.0-31.0); MEAN CORPUSCULAR HGB CONC 34.8 g/dL (33.0-36.5); MEAN CORPUSCULAR VOLUME 90.9 FL (78-98); MEAN PLATELET VOLUME 7.9 FL (7.4-10.4); MONOCYTES # (AUTO) 0.8 X10'3 (0-0.9); MONOCYTES % (AUTO) 9.9 % (2-12); NEUTROPHILS # (AUTO) 4.6 X10'3 (1.8-7.7); PLATELET COUNT 257 X10'3 (140-440); RED BLOOD COUNT 3.92 X10'6 (4.70-6.10); RED CELL DISTRIBUTION WIDTH 14.3 % (11.5-14.5); WHITE BLOOD COUNT 7.7 X10'3 (4.5-11.0)
[2019-03-07 06:17] LABS: ALANINE AMINOTRANSFERASE 31 U/L (12-78); ALBUMIN 3.5 G/DL (3.4-5.0); ALKALINE PHOSPHATASE 79 IU/L (46-116); ANION GAP 10 (8-16); ASPARTATE AMINO TRANSFERASE 15 U/L (10-37); BILIRUBIN,TOTAL 0.4 MG/DL (0.1-1.0); BLOOD UREA NITROGEN 15 MG/DL (7-18); CHLORIDE 108 MMOL/L (99-107); CREATININE 1.15 MG/DL (0.60-1.10); GLUCOSE 85 MG/DL (70-104); POTASSIUM 4.1 MMOL/L (3.5-5.1); SODIUM 143 MMOL/L (135-145); TOTAL CARBON DIOXIDE 25.3 MMOL/L (24-32); eGFR 63 ML/MIN
--- NOTE | 2019-03-07 06:27 | NUR ---
Problems reprioritized. Patient report given, questions answered & plan of care reviewed with RAMAN Hillman.
[2019-03-07] MEDS ORDERED: nitroGLYCERIN-Tridil 50MG/D5W 250 ML IV PRN (06:50)
[2019-03-07] MEDS ORDERED: nitroPRUSSIDE in NS 100 ML IV PRN (06:50)
[2019-03-07] MEDS ORDERED: nitroGLYCERIN-Tridil 50MG/D5W 250 ML IV ONE (06:55)
[2019-03-07] MEDS ORDERED: ringers solution, lacted 1,000 ML IV SCH (06:58)
[2019-03-07] MEDS ORDERED: phenylephrine inj 10 MG in normal saline 250ml IV soln 249 ML IV SCH (07:00)
[2019-03-07] MEDS ORDERED: fentaNYL/PF 50MCG/1 ML 2ML syringe IV PRN ×2 (07:00)
[2019-03-07] MEDS ORDERED: nitroPRUSSIDE in NS 100 ML IV SCH (07:00)
[2019-03-07] MEDS: levoTHYROXINE 25mcg tablet PO SCH (07:00)
[2019-03-07] MEDS ORDERED: morphine 4 MG/ML inj SYRINge IV PRN ×2 (07:00)
[2019-03-07] MEDS ORDERED: labetalol 20mg/4ml (5mg/ml) syringe IV PRN (07:00)
[2019-03-07] MEDS ORDERED: hydrALAZINE 20mg/ml inj. IV PRN (07:00)
[2019-03-07] MEDS ORDERED: ondansetron/PF 4mg/2ml inj IV PRN (07:00)
--- NOTE | 2019-03-07 07:00 | NUR ---
Pt wheeled down to PAS unit for procedure.
[2019-03-07] MEDS: budesonide 0.5mg/2ml UD nebule IH SCH ×2 (07:04→20:39)
[2019-03-07] MEDS ORDERED: LIDOcaine 1% 30ml preserv. free vial ONE (07:05)
[2019-03-07] MEDS ORDERED: heparin 10,000 units/1 ML INJ ONE (07:05)
[2019-03-07] MEDS ORDERED: LIDOcaine 1% (10mg/ml) 2ml vial ONE ×2 (07:05→08:09)
[2019-03-07] MEDS ORDERED: midazolam 2 mg/2 ml injection ONE (07:14)
[2019-03-07] MEDS ORDERED: fentaNYL/PF 50MCG/1 ML 2ML syringe ONE (07:14)
[2019-03-07] MEDS ORDERED: propofol inj 20 ML IV ONE (07:15)
[2019-03-07] MEDS ORDERED: LIDOcaine 2% (20mg/ml) 5ml vial ONE (07:16)
[2019-03-07] MEDS ORDERED: dexamethasone sod phosphate 4mg/ml inj. ONE (07:16)
[2019-03-07] MEDS ORDERED: neostigmine methylsulfate 1 MG/ML 10ml vial ONE (07:18)
[2019-03-07] MEDS ORDERED: glycopyrrolate 0.2mg/ml inj ONE (07:18)
[2019-03-07] MEDS ORDERED: ondansetron/PF 4mg/2ml inj ONE (07:20)
[2019-03-07] MEDS ORDERED: sevoflurane 250ml liquid IH ONE (07:20)
[2019-03-07] MEDS ORDERED: rocuronium 10mg/ml inj IV ONE (07:20)
[2019-03-07] MEDS ORDERED: heparin 1,000unit/ml 10ml vial 10 ML ONE (07:56)
[2019-03-07] MEDS: atorvastatin 20mg tablet PO SCH (08:00)
[2019-03-07] MEDS: clopidogrel 75mg tablet PO SCH (08:00)
[2019-03-07] MEDS: amLODIPine 5mg tablet PO SCH (08:00)
[2019-03-07] MEDS: lisinopril 20mg tablet PO SCH (08:00)
[2019-03-07] MEDS: aspirin 81mg tablet.DR PO SCH (08:00)
[2019-03-07] MEDS ORDERED: phenylephrine 10mg/ml inj. ONE (08:08)
[2019-03-07] MEDS ORDERED: ePHEDrine 50MG/ML INJ. ONE (08:08)
[2019-03-07] MEDS: normal saline 1000ml 1,000 ML IV SCH ×2 (08:48→18:48)
--- NOTE | 2019-03-07 08:55 | NUR ---
Received from OR via BED , accompanied by Anesthesiologist DR CASTILLO and report given by Anesthesiolgist. PATIENT WAKING UP, DENIES PAIN, V/S WNL, NEUROVASCULAR CHECKS INTACT. 20G RUE PIV, ART LINE RUE, DRESSING TO LEFT NECK CDI WITH GAUTAM WITH MINIMAL OUTPUT. SCD ON.
--- NOTE | 2019-03-07 09:35 | NUR ---
PATIENT WAKING UP, DENIES PAIN, V/S WNL, NEUROVASCULAR CHECKS INTACT. 20G RUE PIV, ART LINE RUE, DRESSING TO LEFT NECK CDI WITH GAUTAM WITH MINIMAL OUTPUT. SCD ON. . TAKEN TO 2039 WITH ALL BELONGINGS AND HOOKED UP TO MONITORS IN ROOM AND REPORT GIVEN TO TEST PREPARATION TUTOR WHO HAS TAKEN OVER PATIENT CARE.
--- NOTE | 2019-03-07 09:39 | NUR ---
Report received from Hussein CAMARGO, patient in room, no distress, vss.
[2019-03-07] MEDS: HYDROcodone/acetaminophen 5mg/325mg tablet PO PRN ×3 (11:31→22:37)
--- NOTE | 2019-03-07 11:45 | NUR ---
Called Dr. Junior regarding patient dressing now saturated with blood. Some in GAUTAM Drain as well as in dressing. Hematoma formed on Left side of neck at incision site. Dressing changed per Dr. Junior's order, will continue to monitor. Patient states no distress or difficulty swallowing at this time.
--- NOTE | 2019-03-07 18:30 | NUR ---
Patient in room CICU 2007. I have received report from Julianna CAMARGO and had the opportunity to ask questions and assume patient care.
[2019-03-08] VITALS (20 sets, daily range): BP systolic 95–154; BP diastolic 38–70
[2019-03-08 04:42] LABS: BASOPHILS % (AUTO) 0.4 % (0-1); EOSINOPHILS % (AUTO) 0 % (0-6); HEMATOCRIT 29.1 % (42.0-52.0); HEMOGLOBIN 10.2 g/dl (14.0-17.9); LYMPHOCYTES # (AUTO) 1.2 X10'3 (1.1-4.8); LYMPHOCYTES % (AUTO) 13.2 % (21-51); MEAN CORPUSCULAR HEMOGLOBIN 31.7 PG (27.0-31.0); MEAN CORPUSCULAR VOLUME 90.7 FL (78-98); MEAN PLATELET VOLUME 7.9 FL (7.4-10.4); MONOCYTES # (AUTO) 0.9 X10'3 (0-0.9); MONOCYTES % (AUTO) 9.4 % (2-12); NEUTROPHILS # (AUTO) 7.1 X10'3 (1.8-7.7); PLATELET COUNT 241 X10'3 (140-440); RED BLOOD COUNT 3.21 X10'6 (4.70-6.10); RED CELL DISTRIBUTION WIDTH 14.2 % (11.5-14.5); WHITE BLOOD COUNT 9.3 X10'3 (4.5-11.0)
[2019-03-08] MEDS: normal saline 1000ml 1,000 ML IV SCH ×3 (04:48→16:44)
[2019-03-08 04:58] LABS: ALANINE AMINOTRANSFERASE 28 U/L (12-78); ALBUMIN 2.9 G/DL (3.4-5.0); ALKALINE PHOSPHATASE 64 IU/L (46-116); ANION GAP 9 (8-16); ASPARTATE AMINO TRANSFERASE 13 U/L (10-37); BILIRUBIN,TOTAL 0.4 MG/DL (0.1-1.0); BLOOD UREA NITROGEN 24 MG/DL (7-18); BUN/CREATININE RATIO 21.1 (5.4-32.0); CHLORIDE 108 MMOL/L (99-107); CREATININE 1.14 MG/DL (0.60-1.10); GLUCOSE 124 MG/DL (70-104); POTASSIUM 4.3 MMOL/L (3.5-5.1); SODIUM 140 MMOL/L (135-145); TOTAL CARBON DIOXIDE 22.7 MMOL/L (24-32); TOTAL PROTEIN 5.8 G/DL (6.4-8.2); eGFR 63 ML/MIN
--- NOTE | 2019-03-08 06:25 | NUR ---
Problems reprioritized. Patient report given, questions answered & plan of care reviewed with Maira CAMARGO.
--- NOTE | 2019-03-08 06:45 | NUR ---
Patient in room CICU 2008. I have received report from Parisa CAMARGO and had the opportunity to ask questions and assume patient care.
[2019-03-08] MEDS: atorvastatin 20mg tablet PO SCH (07:16)
[2019-03-08] MEDS: amLODIPine 5mg tablet PO SCH (07:16)
[2019-03-08] MEDS: lisinopril 20mg tablet PO SCH (07:16)
[2019-03-08] MEDS: levoTHYROXINE 25mcg tablet PO SCH (07:16)
--- NOTE | 2019-03-08 07:23 | NUR ---
all morning meds given, stoke education signs and symptoms reviewed and reorientation to the room and call light provided. Patient offered pain medication and he refused stating " I do not feel any pain"
[2019-03-08] MEDS: budesonide 0.5mg/2ml UD nebule IH SCH ×2 (08:31→20:08)
[2019-03-08] MEDS: albuterol 2.5 MG/3 ML nebule NEB SCH ×3 (08:32→20:08)
--- NOTE | 2019-03-08 10:13 | NUR ---
removed ART LINE
--- NOTE | 2019-03-08 11:01 | NUR ---
called [facility] regarding this patient to request a possible transfer to the floor
--- NOTE | 2019-03-08 12:42 | NUR ---
Initial: Pt s/p L carotid endartectomy PO 100% mechanical soft/vegetarian diet meeting needs. LBM 03/05. Will continue to monitor. Rec: 1. continue mechanical soft/vegetarian diet per MD 2. B12 supplementation given vegetarian per MD 3. wt per rx Addendum: 03/08/19 at [address] Amended: Links added.
--- NOTE | 2019-03-08 12:59 | NUR ---
patient can go to surgical w/o tele per Dr. Junior
--- NOTE | 2019-03-08 15:42 | NUR ---
dr. reyna at the bedside saying that he will start the patient on a 81 mg aspirin tonight and that he no longer needed to be on plavix which has already been DCD.
--- NOTE | 2019-03-08 16:30 | NUR ---
Report received from Maira CAMARGO, pt alert, oriented and appropriate in room.
--- NOTE | 2019-03-08 16:38 | NUR ---
Problems reprioritized. Patient report given, questions answered & plan of care reviewed with Joel CAMARGO, PATIENT TRANSFERRED TO SURGICAL ROOM 347B WITH ALL BELONGINGS.
--- NOTE | 2019-03-08 18:36 | NUR ---
Patient in room DANIEL 347. I have received report from Kady CAMARGO and had the opportunity to ask questions and assume patient care.
--- NOTE | 2019-03-08 18:55 | NUR ---
Problems reprioritized. Patient report given, questions answered & plan of care reviewed with Prudence Rn.
[2019-03-08] MEDS: aspirin 81mg tablet.DR PO SCH (20:19)
[2019-03-09] VITALS: BP 123/55
[2019-03-09] MEDS: normal saline 1000ml 1,000 ML IV SCH (01:47)
[2019-03-09] MEDS: albuterol 2.5 MG/3 ML nebule NEB SCH ×3 (02:56→15:47)
[2019-03-09 04:59] LABS: BASOPHILS % (AUTO) 0.5 % (0-1); EOSINOPHILS # (AUTO) 0.2 X10'3 (0-0.9); EOSINOPHILS % (AUTO) 2.1 % (0-6); HEMOGLOBIN 10.2 g/dl (14.0-17.9); LYMPHOCYTES # (AUTO) 2.2 X10'3 (1.1-4.8); LYMPHOCYTES % (AUTO) 26.5 % (21-51); MEAN CORPUSCULAR HEMOGLOBIN 31.4 PG (27.0-31.0); MEAN CORPUSCULAR HGB CONC 34.2 g/dL (33.0-36.5); MEAN PLATELET VOLUME 7.7 FL (7.4-10.4); MONOCYTES # (AUTO) 0.9 X10'3 (0-0.9); MONOCYTES % (AUTO) 11.1 % (2-12); NEUTROPHILS % (AUTO) 59.8 % (42-75); PLATELET COUNT 249 X10'3 (140-440); RED BLOOD COUNT 3.26 X10'6 (4.70-6.10); RED CELL DISTRIBUTION WIDTH 14.3 % (11.5-14.5); WHITE BLOOD COUNT 8.4 X10'3 (4.5-11.0)
[2019-03-09 05:32] LABS: ALBUMIN 2.9 G/DL (3.4-5.0); BILIRUBIN,TOTAL 0.3 MG/DL (0.1-1.0); BLOOD UREA NITROGEN 24 MG/DL (7-18); CHLORIDE 111 MMOL/L (99-107); TOTAL PROTEIN 5.9 G/DL (6.4-8.2)
[2019-03-09 05:47] LABS: ALANINE AMINOTRANSFERASE 29 U/L (12-78); ALKALINE PHOSPHATASE 59 IU/L (46-116); ANION GAP 10 (8-16); ASPARTATE AMINO TRANSFERASE 11 U/L (10-37); BUN/CREATININE RATIO 21.4 (5.4-32.0); CALCIUM 8.4 MG/DL (8.5-10.1); CREATININE 1.12 MG/DL (0.60-1.10); GLUCOSE 98 MG/DL (70-104); SODIUM 144 MMOL/L (135-145); TOTAL CARBON DIOXIDE 23.2 MMOL/L (24-32); eGFR 65 ML/MIN
[2019-03-09 06:00] VITALS: BP 108/50
--- NOTE | 2019-03-09 06:44 | NUR ---
Problems reprioritized. Patient report given, questions answered & plan of care reviewed with Clarisse CAMARGO.
--- NOTE | 2019-03-09 06:46 | NUR ---
Patient in room DANIEL 347. I have received report from RAMAN Hernandez and had the opportunity to ask questions and assume patient care.
[2019-03-09] MEDS: budesonide 0.5mg/2ml UD nebule IH SCH (07:32)
[2019-03-09] MEDS: aspirin 81mg tablet.DR PO SCH (07:41)
[2019-03-09] MEDS: levoTHYROXINE 25mcg tablet PO SCH (07:41)
[2019-03-09] MEDS: atorvastatin 20mg tablet PO SCH (07:42)
[2019-03-09] MEDS: amLODIPine 5mg tablet PO SCH (07:42)
[2019-03-09] MEDS: lisinopril 20mg tablet PO SCH (07:44)
[2019-03-09 11:00] VITALS: BP 112/59
--- NOTE | 2019-03-09 11:40 | NUR ---
GAUTAM drain DC'd and IV fluids DC'd per orders. Pt tolerated well. Pt instructed to notify nursing if any swelling to the neck is noted. Will continue to monitor.
--- NOTE | 2019-03-09 13:17 | NUR ---
Pt's Plavix has been discontinued at discharge, verified with Dr Ruiz who agrees with Dr Junior that he no longer needs the Plavix, ASA will be sufficient. Pt educated on personal stroke risk factors and importance of taking meds as prescribed for seconsary prevention, ASA in this case. Enc daily activity when approved post op. Discussed need to increase daily fruits and veggies and limiting salt intake. Questions answered as able.
[2019-03-09] MEDS ORDERED: ATOR20TA66 PO (13:35)
--- NOTE | 2019-03-09 16:40 | NUR ---
Pt discharged to home with all belongings, in private vehicle, accompanied by friend. Discharge instructions and medications reviewed. New prescription for lipitor call in to [facility]. Pt instructed to follow up with scheduled appointment on 03/[address] Junior[address] NITISH Dela Cruz, cannula intact. [facility]
== END 2019-03-09 16:40 | disposition home or self-care (01) | DRG 37 ==
LOC: ER 21:19 → ORTHO 4S 23:37 → OBSVTOIN 03-02 19:00 → CMPBEDREQ 03-05 15:15 → PAS IN 03-07 07:15 → ICU 2S 03-07 09:23 → CICU 2S 03-07 20:15 → SUR 3N 03-08 16:10
PROVIDERS: ADMIT Internal Medicine; ATTEND Surgery
PROC: 4A02XM4 Measurement of Cardiac Total Activity, External Approach (ICD-10-PCS; principal; 2019-03-05)
PROC: 3E033HZ Introduction of Radioactive Substance into Peripheral Vein, Percutaneous Approach (ICD-10-PCS; 2019-03-05)
PROC: 03CL0ZZ Extirpation of Matter from Left Internal Carotid Artery, Open Approach (ICD-10-PCS; 2019-03-07)
DX: I63.9 Cerebral infarction, unspecified (principal); N17.0 Acute kidney failure with tubular necrosis; I65.22 Occlusion and stenosis of left carotid artery; D64.9 Anemia, unspecified; E03.9 Hypothyroidism, unspecified; E78.00 Pure hypercholesterolemia, unspecified; I73.9 Peripheral vascular disease, unspecified; I10 Essential (primary) hypertension; E86.0 Dehydration; J44.9 Chronic obstructive pulmonary disease, unspecified; Z79.02 Long term (current) use of antithrombotics/antiplatelets; Z79.82 Long term (current) use of aspirin; Z79.899 Other long term (current) drug therapy; Z79.51 Long term (current) use of inhaled steroids; Z87.891 Personal history of nicotine dependence; Z87.11 Personal history of peptic ulcer disease
CPT/HCPCS: 36222; 36415; 70544; 70547; 70551; 71045; 78452; 80048; 80053; 80061; 80305; 83605; 84145; 84443; 84484; 85025; 85610; 85730; 87040; 87081; 92508; 92616; 93005; 93017; 93306; 93880; 93970; 94640; 94760; 95813; 95816; 97110; 97116; 97161; 97164; 97530; 99285; A4618; A4620; A6258; A7000; A9500; C1725; C1760; C1769; C1876; C1884; G0378; J0461; J1100; J1265; J1644; J2001; J2250; J2370; J2405; J2704; J2710; J2785; J3010; J3490; J7030; J7040; J7050; J7120; J7626; Q0163; Q9967

== ENCOUNTER 2021-03-07 17:21 | Emergency (ER) | payer MEDICARE, OTHER ==
[~2021-03-07] VITALS: Ht 177.8 cm; Wt 79.5 kg
[~2021-03-07 17:21] MED LIST changes: +ATOR20TA66 PO; -ATOR40TA PO; -CLOP75TA15 PO; +LEVO50TA8 PO; -LEVO750T21 PO; -LISI-600 PO; +LISI20TA28 PO
[2021-03-07 17:27] VITALS: BP 133/70
[2021-03-07] MEDS ORDERED: IBUP-1985 PO (21:14)
== END 2021-03-07 21:40 | disposition home or self-care (01) ==
LOC: ER 17:22
DX: S46.912A Strain of unspecified muscle, fascia and tendon at shoulder and upper arm level, left arm, initial encounter (principal); E78.00 Pure hypercholesterolemia, unspecified; J44.9 Chronic obstructive pulmonary disease, unspecified; Z86.79 Personal history of other diseases of the circulatory system; Z79.82 Long term (current) use of aspirin; Z79.899 Other long term (current) drug therapy; X50.0XXA Overexertion from strenuous movement or load, initial encounter; Y93.89 Activity, other specified; Y92.89 Other specified places as the place of occurrence of the external cause; X58.XXXA Exposure to other specified factors, initial encounter; Y92.512 Supermarket, store or market as the place of occurrence of the external cause; Y99.8 Other external cause status
CPT/HCPCS: 73030; 99283

== ENCOUNTER 2021-09-18 13:26 | Emergency (ER) | payer MEDICARE, OTHER ==
[~2021-09-18] VITALS: Ht 177.8 cm; Wt 80.0 kg
[2021-09-18 13:26] VITALS: BP 118/69
[~2021-09-18 13:26] MED LIST changes: +IBUP-1985 PO
--- NOTE | 2021-09-18 14:25 | NUR ---
Pt given and understands d/c instructions. Ambulatory with a slow gait.
== END 2021-09-18 14:25 | disposition home or self-care (01) ==
LOC: ER 13:27
DX: U07.1 COVID-19 (principal); R05.9 Cough, unspecified; R06.02 Shortness of breath; E78.00 Pure hypercholesterolemia, unspecified; J44.9 Chronic obstructive pulmonary disease, unspecified; F17.200 Nicotine dependence, unspecified, uncomplicated; Z86.73 Personal history of transient ischemic attack (TIA), and cerebral infarction without residual deficits; Z98.890 Other specified postprocedural states; Z72.89 Other problems related to lifestyle; Z79.82 Long term (current) use of aspirin; Z79.899 Other long term (current) drug therapy
CPT/HCPCS: 71045; 87635; 99284; C9803

== ENCOUNTER 2022-08-27 05:50 | Day surgery (SDC) | payer MEDICARE, OTHER ==
[2022-08-18 14:44] LABS: BASOPHILS # (AUTO) 0.1 X10'3 (0-0.2); BASOPHILS % (AUTO) 1.1 % (0-1); EOSINOPHILS # (AUTO) 0.4 X10'3 (0-0.9); EOSINOPHILS % (AUTO) 5.5 % (0-6); LYMPHOCYTES # (AUTO) 2.1 X10'3 (1.1-4.8); LYMPHOCYTES % (AUTO) 30.4 % (21-51); MEAN CORPUSCULAR HEMOGLOBIN 30.6 PG (27.0-31.0); MEAN CORPUSCULAR HGB CONC 33.6 g/dL (33.0-36.5); MEAN CORPUSCULAR VOLUME 90.9 FL (78-98); MEAN PLATELET VOLUME 8.3 FL (7.4-10.4); MONOCYTES # (AUTO) 0.8 X10'3 (0-0.9); MONOCYTES % (AUTO) 11.1 % (2-12); NEUTROPHILS # (AUTO) 3.7 X10'3 (1.8-7.7); NEUTROPHILS % (AUTO) 51.9 % (42-75); PRE OP HEMATOCRIT 39.8 % (42.0-52.0); PRE OP HEMOGLOBIN 13.4 g/dL (14.0-17.9); PRE OP PLATELET COUNT 172 X10'3 (140-440); RED BLOOD COUNT 4.38 X10'6 (4.70-6.10); RED CELL DISTRIBUTION WIDTH 13.4 % (11.5-14.5)
[2022-08-18 14:56] LABS: ALBUMIN 3.9 G/DL (3.4-5.0); ALBUMIN/GLOBULIN RATIO 1.3 (1.1-1.5); ALKALINE PHOSPHATASE 70 IU/L (46-116); BLOOD UREA NITROGEN 20 MG/DL (7-18); BUN/CREATININE RATIO 12.9 (5.4-32.0); CALCIUM 8.7 MG/DL (8.5-10.1); CHLORIDE 106 MMOL/L (99-107); CREATININE 1.55 MG/DL (0.60-1.10); PRE OP ALT 34 U/L (30-65); PRE OP ANION GAP 4 (8-16); PRE OP AST 26 U/L (10-37); PRE OP BILIRUB, TOTAL 0.6 MG/DL (0.0-1.0); PRE OP GLUCOSE 94 MG/DL (70-104); PRE OP POTASSIUM 3.8 MMOL/L (3.4-5.1); PRE OP SODIUM 140 MMOL/L (135-145); TOTAL CARBON DIOXIDE 30.1 MMOL/L (24-32); eGFR 44 ML/MIN
[~2022-08-27] VITALS: Ht 177.8 cm; Wt 76.2 kg
[~2022-08-27 05:50] MED LIST changes: +ALBU90AE INH; -AMLO10TA PO; -ASPI81TA52 PO; -ATOR20TA66 PO; -BUDE10.22 INH; -CHOL50004 PO; +CYAN500T9 PO; -IBUP-1985 PO; +MULT-1085 PO; +ROSU10TA28 PO; +UMEC1DIS INH; +albuterol 2.5 MG/3 ML nebule NEB ONE; +ceFAZolin inj. 2,000 MG in dextrose 5%-water 100 ML IV ONE; +famotidine 20mg tablet PO ONE; +ringers solution, lactated 500 ML IV SCH; +ringers solution, lacted 1,000 ML IV SCH
[2022-08-27] MEDS ORDERED: BUPIVAcaine 0.5% inj/PF 0 ML ONE (07:17)
[2022-08-27 07:24] VITALS: BP 179/92
[2022-08-27 07:25] VITALS: BP 179/92
[2022-08-27] MEDS ORDERED: ringers solution, lacted 1,000 ML IV SCH (07:25)
[2022-08-27] MEDS ORDERED: labetalol 20mg/4ml (5mg/ml) syringe IV PRN (07:25)
[2022-08-27] MEDS ORDERED: morphine 2 MG/ML inj. syringe IV PRN (07:25)
[2022-08-27] MEDS ORDERED: fentaNYL/PF 50MCG/1 ML 2ML syringe IV PRN ×2 (07:25)
[2022-08-27] MEDS ORDERED: hydrALAZINE 20mg/ml inj. IV PRN (07:25)
[2022-08-27] MEDS ORDERED: ondansetron/PF 4mg/2ml inj IV PRN (07:25)
[2022-08-27] MEDS ORDERED: morphine 4 MG/ML inj SYRINge IV PRN (07:25)
[2022-08-27] MEDS ORDERED: BUPIVAcaine 0.5% inj/PF 30 ML ONE (09:00)
[2022-08-27] MEDS ORDERED: fentaNYL/PF 50MCG/1 ML 2ML syringe ONE (09:02)
[2022-08-27] MEDS ORDERED: MIDAZolam 1 MG/ML 5ML VIAL ONE (09:03)
[2022-08-27] MEDS ORDERED: BUPIVAcaine 0.5% inj/PF 30 ml vial IJ ONE (09:41)
[2022-08-27 09:48] VITALS: BP_SYST 145; BP_DIAS 3; BP_DIAS 63
--- NOTE | 2022-08-27 09:48 | NUR ---
Received from OR via [place], accompanied by Anesthesiologist and report given by ROLANDO Anesthesiologist. PATIENT WAKING UP, NO S/S OF PAIN, V/S WNL, PIV 20G TO RIGHT HAND, LEFT WRIST DRESSING C/D/I. ICE AND ELEVATED LUE. Addendum: 08/27/22 at 1008 by Hai Proctor RN Amended: Links added.
[2022-08-27 09:50] VITALS: BP 130/64
[2022-08-27 10:00] VITALS: BP 141/60
[2022-08-27 10:10] VITALS: BP 140/73
--- NOTE | 2022-08-27 10:18 | NUR ---
ALL DISCHARGE CRITERIA HAS BEEN MET. VSS, PAIN AT A TOLERABLE LEVEL,ABLE TO SAFELY AMBULATE AND TRANSFER SELF. IV TAKEN OUT WITHOUT ANY COMPLICATIONS. ALL DISCHARGE INSTRUCTIONS COVERED WITH PATIENT AND ALL QUESTIONS ANSWERED. PATIENT TAKEN OUT VIA WHEELCHAIR WITH ALL BELONGINGS TO PERSONAL VEHICLE WHERE FRIEND DROVE PATIENT HOME. Addendum: 08/27/22 at 1027 by Hai Proctor RN Amended: Links added.
== END 2022-08-27 10:18 | disposition home or self-care (01) ==
LOC: PAS 05:50
PROVIDERS: ATTEND Orthopaedic Surgery Hand Surgery
DX: G56.02 Carpal tunnel syndrome, left upper limb (principal); J44.9 Chronic obstructive pulmonary disease, unspecified; I10 Essential (primary) hypertension; Z87.891 Personal history of nicotine dependence; Z86.73 Personal history of transient ischemic attack (TIA), and cerebral infarction without residual deficits; Z79.899 Other long term (current) drug therapy; Z90.49 Acquired absence of other specified parts of digestive tract; Z98.890 Other specified postprocedural states; Z79.01 Long term (current) use of anticoagulants
CPT/HCPCS: 36415; 64721; 80053; 82948; 85025; 93005; J0690; J2250; J3010; J7030; J7060; J7120; S0020; Z7506; Z7512; A4215; A6449; A7000

== ENCOUNTER 2022-09-24 07:22 | Day surgery (SDC) | payer MEDICARE, OTHER ==
[2022-09-17 14:14] LABS: BASOPHILS # (AUTO) 0.1 X10'3 (0-0.2); BASOPHILS % (AUTO) 1.3 % (0-1); EOSINOPHILS # (AUTO) 0.2 X10'3 (0-0.9); EOSINOPHILS % (AUTO) 3.9 % (0-6); LYMPHOCYTES # (AUTO) 2.3 X10'3 (1.1-4.8); LYMPHOCYTES % (AUTO) 37.9 % (21-51); MEAN CORPUSCULAR HEMOGLOBIN 30.5 PG (27.0-31.0); MEAN CORPUSCULAR HGB CONC 33.8 g/dL (33.0-36.5); MEAN CORPUSCULAR VOLUME 90.1 FL (78-98); MEAN PLATELET VOLUME 8.6 FL (7.4-10.4); MONOCYTES # (AUTO) 0.7 X10'3 (0-0.9); MONOCYTES % (AUTO) 12.4 % (2-12); NEUTROPHILS # (AUTO) 2.7 X10'3 (1.8-7.7); NEUTROPHILS % (AUTO) 44.5 % (42-75); PRE OP HEMOGLOBIN 13.5 g/dL (14.0-17.9); PRE OP PLATELET COUNT 187 X10'3 (140-440); RED BLOOD COUNT 4.44 X10'6 (4.70-6.10); RED CELL DISTRIBUTION WIDTH 13.4 % (11.5-14.5)
[2022-09-17 14:26] LABS: ALBUMIN 3.8 G/DL (3.4-5.0); ALBUMIN/GLOBULIN RATIO 1.2 (1.1-1.5); ALKALINE PHOSPHATASE 67 IU/L (46-116); BLOOD UREA NITROGEN 27 MG/DL (7-18); BUN/CREATININE RATIO 18.8 (5.4-32.0); CHLORIDE 107 MMOL/L (99-107); CREATININE 1.44 MG/DL (0.60-1.10); PRE OP ALT 35 U/L (30-65); PRE OP ANION GAP 9 (8-16); PRE OP AST 25 U/L (10-37); PRE OP BILIRUB, TOTAL 0.4 MG/DL (0.0-1.0); PRE OP GLUCOSE 105 MG/DL (70-104); PRE OP POTASSIUM 3.9 MMOL/L (3.4-5.1); PRE OP SODIUM 143 MMOL/L (135-145); eGFR 48 ML/MIN
[2022-09-24] VITALS (8 sets, daily range): BP systolic 109–164; BP diastolic 58–81
[~2022-09-24] VITALS: Ht 177.8 cm; Wt 79.4 kg
[~2022-09-24 07:22] MED LIST changes: +CHOL-4 PO; -MULT-1085 PO; -albuterol 2.5 MG/3 ML nebule NEB ONE; +albuterol 2.5 MG/3 ML nebule NEB PRN; -ringers solution, lactated 500 ML IV SCH
[2022-09-24] MEDS ORDERED: BUPIVAcaine/PF 5 mg/ml 10ml ONE (07:36)
[2022-09-24] MEDS ORDERED: LIDOcaine 0.5% (5mg/ml) 50ml vial ONE (08:11)
[2022-09-24] MEDS ORDERED: fentaNYL/PF 50MCG/1 ML 2ML syringe ONE (08:11)
[2022-09-24] MEDS ORDERED: midazolam 1 mg/ML 2ml injection ONE (08:11)
--- NOTE | 2022-09-24 09:15 | NUR ---
Received from OR via [place], accompanied by Anesthesiologist DR CASTILLO and report given by Anesthesiologist AND PLATING DEPARTMENT HELPER. PT DROWSY, DENIES PAIN, RIGHT HAND W/BIAS WRAP COVERING INCISION/DRSG CDI. FINGERS PWD, KILNMAN 1-2 SECONDS. Addendum: 09/24/22 at 0936 by Anastasiya Snell RN Amended: Links added.
--- NOTE | 2022-09-24 10:25 | NUR ---
PT UP AND ABLE TO AMBULATE SAFELY, HAS NO PAIN. D/C INSTRUCTIONS GIVEN AND GONE OVER W/PT WHO VERBALIZED UNDERSTANDING. PT D/CD TO HOME VIA W/C TO PRIVATE VEHICLE W/O INCIDENT. Addendum: 09/24/22 at 1051 by Anastasiya Snell RN Amended: Links added.
== END 2022-09-24 10:25 | disposition home or self-care (01) ==
LOC: PAS 07:22
PROVIDERS: ATTEND Orthopaedic Surgery Hand Surgery
DX: G56.01 Carpal tunnel syndrome, right upper limb (principal); M81.0 Age-related osteoporosis without current pathological fracture; I10 Essential (primary) hypertension; J44.9 Chronic obstructive pulmonary disease, unspecified; Z79.899 Other long term (current) drug therapy; Z79.01 Long term (current) use of anticoagulants; Z98.890 Other specified postprocedural states; Z90.49 Acquired absence of other specified parts of digestive tract; Z87.891 Personal history of nicotine dependence; Z86.73 Personal history of transient ischemic attack (TIA), and cerebral infarction without residual deficits
CPT/HCPCS: 36415; 64721; 80053; 82948; 85025; J0690; J2250; J3010; J3490; J7030; J7060; J7120; Z7506; Z7512; A4215

== ENCOUNTER 2022-12-10 09:33 | Outpatient (CLI) | payer MEDICARE, OTHER ==
[~2022-12-10 09:33] MED LIST changes: -albuterol 2.5 MG/3 ML nebule NEB PRN; -ceFAZolin inj. 2,000 MG in dextrose 5%-water 100 ML IV ONE; -famotidine 20mg tablet PO ONE; -ringers solution, lacted 1,000 ML IV SCH
== END 2022-12-10 23:59 | disposition home or self-care (01) ==
LOC: RT 09:33
PROVIDERS: ATTEND Nurse Practitioner Family
DX: J44.9 Chronic obstructive pulmonary disease, unspecified (principal); R06.02 Shortness of breath; Z87.891 Personal history of nicotine dependence; Z79.899 Other long term (current) drug therapy
CPT/HCPCS: 94010; 94727; 94729

== ENCOUNTER 2023-04-07 10:15 | Emergency (ER) | payer MEDICARE, OTHER ==
[~2023-04-07] VITALS: Ht 177.8 cm; Wt 79.5 kg
[2023-04-07 10:44] VITALS: BP 107/80; PULSE 90; RESP 16; TEMP 98; O2SAT 98
[2023-04-07] MEDS ORDERED: lactulose 20gm/30ml cup PO ONE (11:25)
[2023-04-07] MEDS ORDERED: magnesium hydroxide 30ml (MOM) UD suspension PO ONE (11:25)
== END 2023-04-07 11:46 | disposition home or self-care (01) ==
LOC: ER 10:16
DX: K59.00 Constipation, unspecified (principal); E78.00 Pure hypercholesterolemia, unspecified; J44.9 Chronic obstructive pulmonary disease, unspecified; Z79.899 Other long term (current) drug therapy
CPT/HCPCS: 99283